=== PATIENT | male | born 1980 ===

== ENCOUNTER 2020-11-23 19:17 | Emergency (ER) | payer OTHER ==
[2020-11-23] MEDS ORDERED: Morphine 4 MG/ML Syringe ONE (19:21)
[2020-11-23] MEDS ORDERED: Sodium Chloride 0.9% 1,000 ML IV ONE (19:28)
[2020-11-23 19:51] LABS: BLOOD UREA NITROGEN,BUN 28 mg/dL (7.0-18.0); CARBON DIOXIDE,CO2 26.4 mmol/L (21.0-32.0); CHLORIDE,CL 106 mmol/L (98-107); GLUCOSE RANDOM 93 mg/dL (74-106); POTASSIUM,K 4.1 mmol/L (3.5-5.1); SODIUM,NA 144 mmol/L (136-148)
[2020-11-23] MEDS ORDERED: Iopamidol 755 MG/ML 500 ML Multipack Bottle IVPUSH STA (19:53)
[2020-11-23] MEDS ORDERED: fentaNYL 100 MCG/2 ML SDV ONE (19:54)
[2020-11-23] MEDS ORDERED: Morphine 4 MG/ML Syringe IVPUSH ONE (19:55)
[2020-11-23] MEDS ORDERED: fentaNYL 50 MCG/ML SDV IVPUSH ONE (19:55)
[2020-11-23] MEDS ORDERED: Bupivacaine 0.5% 10 ML SDV INJECT ONE (20:05)
[2020-11-23] MEDS ORDERED: Bupivacaine 0.5% 10 ML SDV ONE ×2 (20:06)
--- NOTE | 2020-11-23 20:15 | CT ---
INDICATION: Trauma, fall from 15 feet TECHNIQUE: CT cervical spine without contrast. COMPARISON: None FINDINGS: Vertebrae: Alignment is normal. There are no fractures or suspicious bony lesions. Discs and facet joints: Disc spaces and facets are within normal limits. Extraspinal findings: Prevertebral soft tissues, visualized airway, and visualized lungs are unremarkable. IMPRESSION: Unremarkable cervical spine CT. Please note that all CT scans at this facility use dose modulation, iterative reconstruction, and/or weight-based dosing when appropriate to reduce radiation dose to as low as reasonably achievable. Dictated by Alexis Suresh MD @ Nov 23 2020 8:14PM Signed by Dr. Alexis Suresh @ Nov 23 2020 8:14PM
--- NOTE | 2020-11-23 20:19 | CT ---
Indication: Trauma. Fall. Technique: Multiple contiguous axial images were obtained from the lung bases through the symphysis pubis after the intravenous administration 100 cc Omnipaque 370. Please note that all CT scans at this facility use dose modulation, iterative reconstruction, and/or weight-based dosing when appropriate to reduce radiation dose to as low as reasonably achievable. Comparison: None Findings: The lung bases are clear. The heart is normal in size. No pericardial effusion is identified. At the dome of the liver in the right lobe of the liver, a lower attenuation lesion is identified measuring approximately 1.2 centimeters in size. This has peripheral pooling is consistent with a hemangioma. A 2nd hemangioma is identified in the lateral aspect of the right lobe of the liver measuring 1.7 centimeters in size. The liver, gallbladder, pancreas, spleen, adrenals, and kidneys are otherwise normal. No intrahepatic biliary ductal dilatation is identified. No hydronephrosis is identified. The small and large bowel are normal in caliber. A moderate amount of stool is identified within the colon. A few sigmoid diverticula are identified. No free air or free fluid is identified within the abdomen or pelvis. The aorta is normal in caliber. A retro aortic left renal vein is identified. Slight irregularity of the posterior right acetabulum is identified, best identified on image number 124, series 307. This is believed to be chronic. However, the patient is having focal pain in this region, then a fracture cannot be completely excluded. No definite fractures are identified. In the pelvis, the prostate gland is normal. The urinary bladder is normal. Impression: No definite acute injury of the abdomen or pelvis Slight irregularity of the posterior right acetabulum is identified, best identified on image number 124, series 307. This is believed to be chronic. However, the patient is having focal pain in this region, then a fracture cannot be completely excluded. Two hepatic hemangiomas Please note that all CT scans at this facility use dose modulation, iterative reconstruction, and/or weight-based dosing when appropriate to reduce radiation dose to as low as reasonably achievable. Dictated by Samreen Smith MD @ Nov 23 2020 8:03PM Signed by Dr. Samreen Smith @ Nov 23 2020 8:17PM
--- NOTE | 2020-11-23 20:25 | CT ---
Indication: Trauma. Fall from 15 feet. Technique: Multiple contiguous axial images were obtained from the thoracic inlet through the upper abdomen after the intravenous administration 100 cc Isovue 370. Please note that all CT scans at this facility use dose modulation, iterative reconstruction, and/or weight-based dosing when appropriate to reduce radiation dose to as low as reasonably achievable. Comparison: None Findings: The heart is normal in size. No pericardial effusions identified. The aorta is normal in caliber. No mediastinal, hilar, or axillary lymphadenopathy is identified. There is no evidence of aortic dissection. Hepatic hemangiomas identified at the dome of the liver. The visualized portions of the liver, spleen, pancreas are grossly normal. A 2nd hepatic hemangiomas identified in the lateral aspect of the right lobe of the liver. The lungs are clear. No infiltrate, pleural effusion, or pneumothorax is identified. The humeral heads are seated within the glenoid. The scapula are intact. No displaced rib fractures are identified. No sternal fractures are identified. No thoracic spine fractures are identified. Impression: No acute injury of the chest. Please note that all CT scans at this facility use dose modulation, iterative reconstruction, and/or weight-based dosing when appropriate to reduce radiation dose to as low as reasonably achievable. Dictated by Samreen Smith MD @ Nov 23 2020 8:18PM Signed by Dr. Samreen Smith @ Nov 23 2020 8:23PM
--- NOTE | 2020-11-23 20:34 | CT ---
Indication: Fall. Trauma. Technique: Multiple contiguous axial images were obtained at the level of the lumbar spine. Sagittal and coronal reformatted images were performed. Please note that all CT scans at this facility use dose modulation, iterative reconstruction, and/or weight-based dosing when appropriate to reduce radiation dose to as low as reasonably achievable. Comparison: None Findings: The alignment of the lumbar spine is within normal limits. The vertebral body heights are well maintained. The intervertebral disc space heights are well maintained. No fracture or subluxation is identified. Impression: No acute fracture Please note that all CT scans at this facility use dose modulation, iterative reconstruction, and/or weight-based dosing when appropriate to reduce radiation dose to as low as reasonably achievable. Dictated by Samreen Smith MD @ Nov 23 2020 8:24PM Signed by Dr. Samreen Smith @ Nov 23 2020 8:31PM
[2020-11-23] MEDS ORDERED: HYDROmorphone 1 MG/ML Syringe IVPUSH STA (20:37)
--- NOTE | 2020-11-23 20:38 | CT ---
Indication: Trauma. Fall from 15 feet. Technique: Multiple contiguous axial images were obtained through the level of the thoracic spine. Sagittal and coronal reformatted images were performed. Please note that all CT scans at this facility use dose modulation, iterative reconstruction, and/or weight-based dosing when appropriate to reduce radiation dose to as low as reasonably achievable. Comparison: None Findings: The alignment of the thoracic spine is within normal limits. The vertebral body heights are well maintained. The intervertebral disc space heights are well maintained. No acute fracture or subluxation is identified. Impression: No acute fracture. Please note that all CT scans at this facility use dose modulation, iterative reconstruction, and/or weight-based dosing when appropriate to reduce radiation dose to as low as reasonably achievable. Dictated by Samreen Smith MD @ Nov 23 2020 8:31PM Signed by Dr. Samreen Smith @ Nov 23 2020 8:37PM
--- NOTE | 2020-11-23 20:49 | CR ---
INDICATION: Pain after 15 foot fall COMPARISON: None available. TECHNIQUE: The right knee was examined with AP and lateral views for a total of two views. FINDINGS: There is no sign of fracture or dislocation. The medial and lateral compartments are normal in height. There is no sign of a joint effusion. No soft tissue abnormality is seen. IMPRESSION: Normal right knee. Dictated by Miguel Jackson MD @ Nov 23 2020 8:44PM Signed by Dr. Miguel Jackson @ Nov 23 2020 8:47PM
--- NOTE | 2020-11-23 20:49 | CR ---
INDICATION: Pain after 15 foot fall. COMPARISON: None available. TECHNIQUE: AP and lateral views of the right tibia and fibula were obtained. The ankle is not fully included on the lateral view but is fully imaged on the accompanying ankle examination. FINDINGS: There is no sign of fracture, dislocation, or joint effusion. There is prominent soft tissue swelling overlying the lateral malleolus. The soft tissues elsewhere in the calf and knee are normal in appearance. No degenerative disease is seen in the visualized portions of the knee and ankle. IMPRESSION: Prominent soft tissue swelling overlying the lateral malleolus. Otherwise normal two-view right tibia and fibula. Dictated by Miguel Jackson MD @ Nov 23 2020 8:44PM Signed by Dr. Miguel Jackson @ Nov 23 2020 8:46PM
--- NOTE | 2020-11-23 20:51 | CR ---
HISTORY: Pain after 15 foot fall COMPARISON: None available. FINDINGS: The right foot is examined with AP, lateral, and oblique views. There is an acute, transverse fracture of the calcaneus with flattening of Boehler`s angle, findings of a calcaneal crush fracture. There is no sign of additional fracture or dislocation. There is prominent soft tissue swelling overlying the lateral malleolus, with no sign of fracture of the lateral malleolus. No degenerative disease is seen. IMPRESSION: Vertical fracture through the midbody of the calcaneus with flattening of Boehler`s angle, findings of an acute calcaneal crush fracture. Prominent soft tissue swelling overlying the lateral malleolus with no sign associated fracture. Dictated by Miguel Jackson MD @ Nov 23 2020 8:44PM Signed by Dr. Miguel Jackson @ Nov 23 2020 8:50PM
--- NOTE | 2020-11-23 20:55 | CR ---
HISTORY: Pain after 15 foot fall COMPARISON: None available. FINDINGS: AP and lateral views of the right ankle were obtained. There is an acute vertical fracture line through the mid body of the calcaneus with flattening of Boehler`s angle, findings of an acute crush fracture of the calcaneus. There is no sign of any associated fracture of the talus. There is no sign of additional fracture or dislocation. There is prominent lateral soft tissue swelling overlying the lateral malleolus with no sign of lateral malleolar fracture. There is tilting of the talar dome medially, resulting in widening of the lateral ankle mortise, consistent with disruption of the lateral ankle ligaments. There is no sign of a joint effusion. There is mild anterior soft tissue swelling as well. No degenerative disease is seen. IMPRESSION: Acute crush fracture of the calcaneus with a dominant vertical fracture line through the mid body. Prominent right lateral soft tissue swelling with widening of the lateral aspect of the ankle mortise from tilting of the talus medially, consistent with prominent disruption of the lateral ankle ligaments. Dictated by Miguel Jackson MD @ Nov 23 2020 8:44PM Signed by Dr. Miguel Jackson @ Nov 23 2020 8:52PM
--- NOTE | 2020-11-23 22:04 | CR ---
INDICATION: Fall, right calcaneal fracture, left foot pain TECHNIQUE: Foot radiograph 3 views left COMPARISON: None FINDINGS: Bone: No acute fractures or aggressive bone lesions are identified. Joint: The visualized hindfoot, midfoot, and forefoot joints are unremarkable in appearance. No significant ankle effusion is seen. Soft tissue: Unremarkable. No radiopaque foreign bodies are seen. IMPRESSION: 1. No acute osseous injuries or abnormalities are noted. Dictated by: Melvin Barnard MD @ 11/23/2020 22:03:02 (Electronically Signed)
[2020-11-23] MEDS ORDERED: Acetaminophen/HYDROcodone 325-5 MG Tab PO ONE (23:14)
--- NOTE | 2020-11-23 23:33 | EDM.PDOC ---
ED HPI GENERAL MEDICAL PROBLEM - General Chief Complaint: Trauma Stated Complaint: EMS Time Seen by Provider: 11/23/20 19:27 - History of Present Illness INITIAL COMMENTS - FREE TEXT/NARRATIVE: CHIEF COMPLAINT(S): Fall HISTORY OF PRESENT ILLNESS: This is a 40-year-old man who presents to the emergency department as a trauma alert after an accidental fall. Per EMS: The patient has a deformity of his right ankle and is explaining that he has pain in his right hip and right ankle. He states that his vitals are stable in route. He states that he fell approximately 15 feet. The patient states that he was s[place] a 10 roof when he fell off the roof and landed on his feet. He states that he is currently experiencing right ankle pain, right foot pain, right hip pain. He denies any head injury or loss of consciousness. He denies any bowel incontinence or urinary incontinence. He denies any back pain. He denies any chest pain, abdominal pain, nausea or vomiting. He denies any use of oral anticoagulation. REVIEW OF SYSTEMS: Constitutional: Denies fever, chills. Eyes: Denies eye pain Ears, Nose, Mouth, & Throat: Denies earache Cardiovascular: Denies chest pain Respiratory: Denies shortness of breath Gastrointestinal: Denies Nausea, vomiting, diarrhea, hematochezia, bowel incontinence Genitourinary: Denies hematuria urinary incontinence MSK: Positive for right ankle, right hip pain. Neurological: Denies blurred vision, numbness, tingling Psychiatric: Denies depression PAST MEDICAL HISTORY: As per history of present illness and as reviewed below otherwise noncontributory. SURGICAL HISTORY: As per history of present illness and as reviewed below otherwise noncontributory. SOCIAL HISTORY: As per history of present illness and as reviewed below otherwise noncontributory. FAMILY HISTORY: As per history of present illness and as reviewed below otherwise noncontributory. EXAMINATION OF ORGAN SYSTEMS/BODY AREAS: VITALS: Blood pressure is 124/84, heart rate 95, respiratory rate 22 with an oxygen saturation 97% on room air. Temperature 36.8 rectal GENERAL: The patient is well-nourished, well-developed, in a moderate amount of pain. HEAD, EARS, EYES, NOSE THROAT: Normocephalic, atraumatic. PERRL. EOM are intact. There was no facial bone tenderness. Ears were clear, no hemotympanum. Oropharynx is clear. No missing or chipped teeth. Neck was supple and nontender. C-collar in place. RESPIRATORY: No tachypnea. Equal breath sounds are heard bilaterally. Lungs clear to ausculatation. CARDIOVASCULAR: Regular rate and rhythm. Heart sounds were normal. There is no S3, S4, murmur, rub. There is no chest wall tenderness. No crepitus. Radial and dorsalis pedis pulses were palpable and equal bilaterally. ABDOMEN: The abdomen was soft, nondistended, and nontender to palpation. There was no guarding or rebound tenderness. Bowel sounds were present throughout the abdomen and normal. Pelvis was stable but tender to the patient's right anterior hip SPINE: There is no cervical, thoracic or lumbar spine tenderness. Appropriate rectal tone. EXTREMITIES: Extremity examination revealed right ankle swelling with no instability and appears well aligned. The patient had good pulses distally.. Patient has decreased any motion of the right leg secondary to pain otherwise moving all 4 extremities distal pulses palpable in bilterally. NEUROLOGICAL: Alert and oriented. On neurological examination [place] Coma Scale was 15. Facies were symmetrical. Strength was good in all extremities. SKIN: Appropriately warm to touch. No rashes, or pallor. No external signs of trauma. MEDICAL DECISION MAKING AND COURSE IN THE ED WITH INTERPRETATION/REVIEW OF DIAGNOSTIC STUDIES: This is a 40-year-old man who presents to emergency department as a trauma alert. Immediately upon entering the resuscitation bay ATLS protocol was followed, the patient is disrobed, and placed on continuous cardiac monitoring as well as pulse oximetry. Patient tells me their name displaying a patent airway, breath sounds are equal bilaterally, and patient has palpable pulses in all 4 extremities. The patient does have a deformity to his right ankle., And does not have any gross deficit. Upon exposure no further lesions are seen. Palpation of the cervical, thoracic, and lumbar spine reveals no tenderness. IV access is obtained, and trauma labs are sent. We provide the patient with morphine for pain relief. FAST exam is negative With this initial workup completed the patient is suitable for transfer to CT. The radiological images were viewed by myself along with reading the report from the radiologist. CT chest with contrast does not reveal any acute intrathoracic abnormality. CT abdomen pelvis with contrast does not reveal any acute abnormality. No evidence of pelvic fracture or hip fracture CT cervical spine does not reveal any acute fracture or subluxation. CT thoracic spine does not reveal any fracture or subluxation. CT lumbar spine does not reveal any fracture or subluxation. Right ankle x-ray of reveals an acute crush fracture of the calcaneus with dominant vertical fracture line through the mid body. Right tib-fib x-ray does not reveal any abnormal fracture or dislocation of the tibia or fibula. There is prominent soft tissue swelling over the lateral malleolus. Right foot x-ray reveals a vertical fracture through the mid body of the calcaneus with flattening of Boehler's angle. Left foot x-ray does not reveal any acute osseous abnormalities. Laboratory: CBC reveals a leukocytosis of 14.05 likely reactive secondary to trauma. Coags are within normal limits. CMP reveals elevated BUN at 28 and creatinine of 1.4. CPK is 397. Serum alcohol is negative. After imaging I did contact Dr. Toscano here at [facility]. Dated the patient will need to follow-up with orthopedics however not here in [place]. Therefore I contacted [facility] in [place] and spoke with Dr. Cason who stated the patient should follow-up in his clinic. I did obtain a number from him. He recommended a bulky dressing to the right lower extremity using 10-15 rolls of KErlix to keep the right lower extremity elevated. I did discuss the results with the patient. I discussed that this time that we would need to place some Kerlix on his right lower extremity and an Ho wrap. He was amenable to this plan. The patient will need crutches as the patient is to be nonweightbearing until follow-up. In addition the patient states that he does not have insurance does not know how he is getting for this. I did direct his and himself to discuss with the front office spec regarding application for insurance. We did place the bulky dressing and wrapped it and Ho wrap. He is to return for any new or worsening symptoms. He was amenable to discharge at this time and had no further questions. I did discuss pain control at home and provided the patient with a prescription with Plymouth until he follows up with orthopedics DISPOSITION: The patient was discharged home in stable condition. The patient will follow up with orthopedics in [facility] within 1 week PROCEDURES: Cardiac monitoring, pulse oximetry interpretation. Fast examination. FINAL IMPRESSION(S)/DIAGNOSES: 1. Acute mechanical fall 2. Acute right calcaneal fracture 3. Acute right ankle sprain Orlando Ramsey M.D. DME: Dave Indication: Right calcaneal fracture Benefit: Nonweightbearing status Duration: Until follow-up with orthopedics Critical Care Procedure Note Authorized and performed by: Orlando Ramsey M.D. Critical Care Time: 34 minutes Due to a high probability of clinically significant, life threatening deterioration, the patient required my highest level of preparedness to intervene emergently and I personally spent this critical care time directly and personally managing the patient. This critical care time included obtaining a history, examining the patient, pulse oximetry; ordering and review of studies; arranging urgent treatment with development of a management plan; evaluation of a patients reponse to treatment; frequent assessment; and discussions with other providers. This critical care time was performed to assess and manage the high probability of imminent, life threatening deterioration that could result in multiorgan failure. It was exclusive of separate billable procedures and treating other patients. Please see MDM section and rest of the note for further information on patient assessment and treatment. Treatments GLOVE WRAPPER: Reports: Cervical Collar, Splint(s), Spinal Immobilization Right Ankle Pain Score (Numeric/FACES): 10 - Related Data Allergies Allergy/AdvReac Type Severity Reaction Status Date / Time No Known Allergies Allergy Verified 11/23/20 19:42 Home Meds: Home Meds Acetaminophen/HYDROcodone [P[place] 325-7.5 MG] 1 tab PO Q6H PRN #12 tab 11/23/20 [Rx] Ibuprofen [Motrin] 600 mg PO Q6H #28 tab 11/23/20 [Rx] Past Medical History - Past Health History Medical/Surgical History: Denies Medical/Surgical History Social & Family History - Family History Family Medical History: No Pertinent Family History - Tobacco Use Tobacco Use Status *Q: Never Tobacco User Second Hand Smoke Exposure: No - Recreational Drug Use Recreational Drug Use: No Review of Systems - Review of Systems Review Of Systems: See Below ED EXAM, GENERAL - Physical Exam Exam: See Below Course - Vital Signs Last Recorded V/S: Last Vital Signs Temp 36.8 C 11/23/20 19:17 Pulse 95 11/23/20 19:17 Resp 22 H 11/23/20 19:17 BP 124/84 11/23/20 19:17 Pulse Ox 97 11/23/20 19:17 - Orders/Labs/Meds Labs: Laboratory Tests 11/23/20 11/23/20 11/23/20 Range/Units 19:15 19:15 19:15 WBC 14.05 H (4.0-11.0) K/uL RBC 4.92 (4.50-5.90) M/uL Hgb 14.4 (13.0-17.0) g/dL Hct 42.6 (38.0-50.0) % MCV 86.6 (80.0-98.0) fL MCH 29.3 (27.0-32.0) pg MCHC 33.8 (31.0-37.0) g/dL RDW Std Deviation 41.4 (28.0-62.0) fl RDW Coeff of Greg 13 (11.0-15.0) % Plt Count 275 (150-400) K/uL MPV 9.80 (7.40-12.00) fL Neut % (Auto) 80.9 H (48.0-80.0) % Lymph % (Auto) 11.4 L (16.0-40.0) % Lamb % (Auto) 6.9 (0.0-15.0) % Eos % (Auto) 0.6 (0.0-7.0) % Baso % (Auto) 0.2 (0.0-1.5) % Neut # (Auto) 11.4 H (1.4-5.7) K/uL Lymph # (Auto) 1.6 (0.6-2.4) K/uL Lamb # (Auto) 1.0 H (0.0-0.8) K/uL Eos # (Auto) 0.1 (0.0-0.7) K/uL Baso # (Auto) 0.0 (0.0-0.1) K/uL Nucleated RBC % 0.0 /100WBC Nucleated RBCs # 0 K/uL INR 1.05 Sodium 144 (136-148) mmol/L Potassium 4.1 (3.5-5.1) mmol/L Chloride 106 (98-107) mmol/L Carbon Dioxide 26.4 (21.0-32.0) mmol/L BUN 28 H (7.0-18.0) mg/dL Creatinine 1.4 H (0.8-1.3) mg/dL Est Cr Clr Drug Dosing 61.01 mL/min Estimated GFR (MDRD) 56.1 ml/min Glucose 93 (74-106) mg/dL Calcium 9.2 (8.5-10.1) mg/dL Total Bilirubin 0.8 (0.2-1.0) mg/dL AST 27 (15-37) IU/L ALT 34 (14-63) IU/L Alkaline Phosphatase 102 (46-116) U/L Creatine Kinase 397 H (26-308) U/L Total Protein 7.5 (6.4-8.2) g/dL Albumin 4.2 (3.4-5.0) g/dL Globulin 3.3 (2.6-4.0) g/dL Albumin/Globulin Ratio 1.3 (0.9-1.6) Ethyl Alcohol < 3.0 mg/dL Blood Type Antibody Screen 11/23/20 Range/Units 19:15 WBC (4.0-11.0) K/uL RBC (4.50-5.90) M/uL Hgb (13.0-17.0) g/dL Hct (38.0-50.0) % MCV (80.0-98.0) fL MCH (27.0-32.0) pg MCHC (31.0-37.0) g/dL RDW Std Deviation (28.0-62.0) fl RDW Coeff of Greg (11.0-15.0) % Plt Count (150-400) K/uL MPV (7.40-12.00) fL Neut % (Auto) (48.0-80.0) % Lymph % (Auto) (16.0-40.0) % Lamb % (Auto) (0.0-15.0) % Eos % (Auto) (0.0-7.0) % Baso % (Auto) (0.0-1.5) % Neut # (Auto) (1.4-5.7) K/uL Lymph # (Auto) (0.6-2.4) K/uL Lamb # (Auto) (0.0-0.8) K/uL Eos # (Auto) (0.0-0.7) K/uL Baso # (Auto) (0.0-0.1) K/uL Nucleated RBC % /100WBC Nucleated RBCs # K/uL INR Sodium (136-148) mmol/L Potassium (3.5-5.1) mmol/L Chloride (98-107) mmol/L Carbon Dioxide (21.0-32.0) mmol/L BUN (7.0-18.0) mg/dL Creatinine (0.8-1.3) mg/dL Est Cr Clr Drug Dosing mL/min Estimated GFR (MDRD) ml/min Glucose (74-106) mg/dL Calcium (8.5-10.1) mg/dL Total Bilirubin (0.2-1.0) mg/dL AST (15-37) IU/L ALT (14-63) IU/L Alkaline Phosphatase (46-116) U/L Creatine Kinase (26-308) U/L Total Protein (6.4-8.2) g/dL Albumin (3.4-5.0) g/dL Globulin (2.6-4.0) g/dL Albumin/Globulin Ratio (0.9-1.6) Ethyl Alcohol mg/dL Blood Type O POSITIVE Antibody Screen NEGATIVE Meds: Medications Discontinued Medications Generic Name Dose Route Start Last Admin Trade Name Adamq PRN Reason Stop Dose Admin Hydrocodone Bitart/Acetaminophen 2 tab 11/23/20 23:14 11/23/20 23:31 [place] 325-5 Mg PO 11/23/20 23:15 2 tab ONETIME ONE Administration Bupivacaine HCl 20 ml 11/23/20 20:05 11/23/20 20:08 Sensorcaine-Mpf 0.5% INJECT 11/23/20 20:06 20 ml ONETIME ONE Administration Bupivacaine HCl Confirm 11/23/20 20:06 11/23/20 20:35 Sensorcaine-Mpf 0.5% Administered 11/23/20 20:07 Not Given Dose 10 ml .ROUTE .STK-MED ONE Bupivacaine HCl Confirm 11/23/20 20:06 11/23/20 20:35 Sensorcaine-Mpf 0.5% Administered 11/23/20 20:07 Not Given Dose 10 ml .ROUTE .STK-MED ONE Fentanyl 100 mcg 11/23/20 19:55 11/23/20 20:03 Fentanyl IVPUSH 11/23/20 19:56 100 mcg ONETIME ONE Administration Fentanyl Confirm 11/23/20 19:54 11/23/20 19:58 Sublimaze Administered 11/23/20 19:55 Not Given Dose 100 mcg .ROUTE .STK-MED ONE Hydromorphone HCl 1 mg 11/23/20 20:37 11/23/20 20:44 Dilaudid IVPUSH 11/23/20 20:38 1 mg ONETIME STA Administration Sodium Chloride 1,000 mls @ 999 mls/hr 11/23/20 19:28 11/23/20 20:04 Normal Saline IV 11/23/20 20:28 999 mls/hr .BOLUS ONE Administration Iopamidol 100 ml 11/23/20 19:53 11/23/20 19:56 Isovue Multipack-370 (76%) IVPUSH 11/23/20 19:54 100 ml ONETIME STA Administration Morphine Sulfate Confirm 11/23/20 19:21 11/23/20 20:01 Morphine Administered 11/23/20 19:22 Not Given Dose 4 mg .ROUTE .STK-MED ONE Morphine Sulfate 4 mg 11/23/20 19:55 11/23/20 20:03 Morphine IVPUSH 11/23/20 19:56 4 mg ONETIME ONE Administration Departure - Departure Time of Disposition: 23:29 Disposition: Home, Self-Care 01 Condition: Fair Clinical Impression: Calcaneal fracture Qualifiers: Encounter type: initial encounter Calcaneus location: body Fracture type: closed Fracture alignment: nondisplaced Laterality: right Qualified Code(s): S92.014A - Nondisplaced fracture of body of right calcaneus, initial encounter for closed fracture - Discharge Information *PRESCRIPTION DRUG MONITORING PROGRAM REVIEWED*: Yes *COPY OF PRESCRIPTION DRUG MONITORING REPORT IN PATIENT [id number]: Yes Prescriptions: Ibuprofen [Motrin] 600 mg PO Q6H #28 tab Acetaminophen/HYDROcodone [[place] 325-7.5 MG] 1 tab PO Q6H PRN #12 tab PRN Reason: Pain (Severe 7-10) Instructions: Calcaneal Fracture Repair Surgery, Care After Referrals: PCP,None [Primary Care Provider] - Forms: ED Department Discharge Additional Instructions: You were evaluated today on an emergent basis. At this time you do have a fracture of your right heel. I do recommend you keep this extremity elevated to decrease swelling and pain and also use crutches when walking. You are not to bear any weight on this right heel. Please take [place] every 6 hours as needed for pain. In addition take Motrin every 6 hours for pain. You have any new or worsening symptoms please return to the emergency department. Please call orthopedics tomorrow for outpatient follow-up. Dr. Cason [phone] MIKIE Kuo The patient is informed of any results of their evaluation and diagnostic workup and all questions are answered. They are given discharge instructions and return precautions. The patient is stable for discharge. The patient states they understand and agree with the plan and that they will return if their symptoms get worse or if they have any new concerns. The following information is given to patients seen in the emergency department who are being discharged to home. This information is to outline your options for follow-up care. We provide all patients seen in our emergency department with a follow-up referral. The need for follow-up, as well as the timing and circumstances, are variable depending upon the specifics of your emergency department visit. If you don't have a primary care physician on staff, we will provide you with a referral. We always advise you to contact your personal physician following an emergency department visit to inform them of the circumstance of the visit and for follow-up with them and/or the need for any referrals to a consulting specialist. The emergency department will also refer you to a specialist when appropriate. This referral assures that you have the opportunity for follow-up care with a specialist. All of these measure are taken in an effort to provide you with optimal care, which includes your follow-up. Under all circumstances we always encourage you to contact your private physician who remains a resource for coordinating your care. When calling for follow-up care, please make the office aware that this follow-up is from your recent emergency room visit. If for any reason you are refused follow-up, please contact the [facility] Emergency Department at and asked to speak to the emergency department charge nurse. Sepsis Event Note (ED) - Evaluation Sepsis Screening Result: No Definite Risk
== END 2020-11-24 | disposition home or self-care (01) ==
LOC: MW.ED 19:17
DX: S92.014A Nondisplaced fracture of body of right calcaneus, initial encounter for closed fracture (principal); S93.401A Sprain of unspecified ligament of right ankle, initial encounter; W13.2XXA Fall from, out of or through roof, initial encounter
CPT/HCPCS: 36415; 71260; 72125; 73560; 73590; 73600; 73620; 73630; 74177; 80053; 80179; 82550; 85025; 85610; 86850; 86900; 86901; 96374; 96375; 99291; A9270; J1170; J2270; J3010; J3490; J7030; Q9967; 72128-26; 72131-26